=== PATIENT | female | born 1990 | race Caucasian/White ===

== ENCOUNTER 2018-04-30 04:38 | Emergency (ER) | payer SELFPAY ==
[2018-04-30 05:24] LABS: Absolute Lymphocytes (CBC) 1.7 K/uL (0.7-4.9); Absolute Monocytes 0.5 K/uL (0.1-1.3); Absolute Neutrophil 4.7 K/uL (1.8-8.0); Basophils % 0.4 % (0-1.3); Eosinophils % 1.1 % (0-4.4); Hematocrit 38.7 % (36.0-45.0); Lymphocytes % 24.8 % (15.3-44.8); Monocytes % 7.1 % (3.3-12.3)
[2018-04-30] MEDS ORDERED: MAGNE/ALUM HYDROXD 30 ML UCUP ONE (05:29)
[2018-04-30] MEDS ORDERED: ONDANSETRON 4 MG/2 ML VIAL ONE (05:29)
[2018-04-30] MEDS ORDERED: NA CHLORIDE 0.9% 1,000 ML ONE (05:29)
[2018-04-30] MEDS ORDERED: LIDOCAINE VISCOUS 2% SOLN 15 ML UDC ONE (05:29)
[2018-04-30 05:39] LABS: Urine Blood NEGATIVE (NEG); Urine Glucose NEGATIVE (NEG); Urine Protein NEGATIVE (NEG); Urine pH 5.5 (5.0-7.0)
[2018-04-30 05:39] LABS: ALT/SGPT 27 U/L (12-78); AST/SGOT 19 U/L (15-37); Alkaline Phosphatase 79 U/L (45-117); BUN Blood Urea Nitrogen 12 mg/dL (7-18); Bicarbonate 26 mmol/L (21-32); Bilirubin Direct 0.1 mg/dL (0-0.2); Bilirubin Total 0.4 mg/dL (0.2-1.0); Glucose Level 93 mg/dL (74-106); Lipase 87 U/L (73-393); Potassium 3.5 mmol/L (3.5-5.1); Sodium Level 139 mmol/L (136-145)
--- NOTE | 2018-04-30 08:11 | RAD REPORT ---
EXAM DESCRIPTION: US - Abdomen Exam Limited - 04/30/2018 7:07 am CLINICAL HISTORY: EPIGASTRIC PAIN COMPARISON: No comparisons FINDINGS: The gallbladder demonstrates no gallstones. No pericholecystic fluid or gallbladder wall t hickening. The common bile duct is normal measuring 4 mm. The liver demonstrates no findings of intrahepatic biliary dilatation. IMPRESSION: Unremarkable examination.
--- NOTE | 2018-04-30 08:11 | RAD REPORT ---
EXAM DESCRIPTION: CTAbdomen Pelvis W Contrast - 04/30/2018 7:26 am CLINICAL HISTORY: Abdominal pain. ABD PAIN COMPARISON: No comparisons TECHNIQUE: Biphasic CT imaging of the abdomen and pelvis was performed with 100 ml non-ionic IV cont rast. All CT scans are performed using dose optimization technique as appropriate and may include automated exposure control or mA/KV adjustment according to patient size. FINDINGS: The lung bases are clear. The liver, spleen, pancreas, adrenal glands and kidneys are within normal limits. No bowel obstruction, free air, free fluid or abscess. Small fat containing umbilical The appendix is normal. No evidence of significant lymphadenopathy. No suspicious bony findings. IMPRESSION: No acute intra-abdominal or pelvic finding.
--- NOTE | 2018-04-30 08:27 | ER ---
Nurse's Notes [facility] Name: Patsy Alcocer Age: 27 yrs Sex: Female : 1990 Arrival Date: 04/30/2018 Time: 04:41 Bed 5 Private MD: Diagnosis: Gastritis, unspecified Presentation: 04/30 04:45 Presenting complaint: Patient states: that she has been having abd pain x 3 days along fc with nausea and vomiting. Last bowel movement yesterday and it was "hard". Also concerned because her abd is hard to touch. Transition of care: patient was not received from another setting of care. Onset of symptoms was April 27, 2018. Risk Assessment: Do you want to hurt yourself or someone else? Patient reports no desire to harm self or others. Initial Sepsis Screen: Does the patient meet any 2 criteria? No. Patient's initial sepsis screen is negative. Does the patient have a suspected source of infection? No. Patient's initial sepsis screen is negative. Care prior to arrival: None. 04:45 Method Of Arrival: Ambulatory fc 04:45 Acuity: BIN 3 fc SUPERVISOR MAPPING: 04:45 [facility] 04/20/2018 fc Historical: - Allergies: 04:51 No Known Allergies; fc - Home Meds: 04:51 None [Active]; fc - PMHx: 04:51 None; fc - PSHx: 04:51 None; fc - Immunization history:: Last tetanus immunization: unknown, Flu vaccine is not up to date. - Social history:: Smoking status: Patient/guardian denies using tobacco, Patient/guardian denies using alcohol, street drugs. - Ebola Screening: : Patient negative for fever greater than or equal to 101.5 degrees Fahrenheit, and additional compatible Ebola Virus Disease symptoms Patient denies exposure to infectious person Patient denies travel to an Ebola-affected area in the 21 days before illness onset. - Family history:: not pertinent. - Hospitalizations: : No recent hospitalization is reported. Screenin:45 Abuse screen: Denies threats or abuse. Nutritional screening: No deficits noted. fc Tuberculosis screening: No symptoms or risk factors identified. Fall Risk None identified. Assessment: 04:50 General: Appears in no apparent distress. uncomfortable, Behavior is calm, cooperative, jd3 appropriate for age. Pain: Complains of pain in abdomen Quality of pain is described as aching, tender. Neuro: Level of Consciousness is awake, alert, obeys commands, Oriented to person, place, time, situation. Cardiovascular: Capillary refill < 3 seconds Patient's skin is warm and dry. Respiratory: Airway is patent Respiratory effort is even, unlabored, Respiratory pattern is regular, symmetrical. GI: Abdomen is round non-distended, Bowel sounds present X 4 quads. Abd is soft in right upper quadrant, right lower quadrant and left lower quadrant Abdomen is tender to palpation in left upper quadrant Reports constipation. : No signs and/or symptoms were reported regarding the genitourinary system. EENT: No signs and/or symptoms were reported regarding the EENT system. Derm: Skin is intact, Skin is dry, Skin is normal, Skin temperature is warm. Musculoskeletal: Circulation, motion, and sensation intact. Range of motion: intact in all extremities. 06:19 Reassessment: Patient appears in no apparent distress at this time. Patient and/or tl2 family updated on plan of care and expected duration. Pain level reassessed. Patient is alert, oriented x 3, equal unlabored respirations, skin warm/dry/pink. Patient states feeling better. 07:15 Reassessment: Patient appears in no apparent distress at this time. Patient and/or hb family updated on plan of care and expected duration. Pain level reassessed. Patient is alert, oriented x 3, equal unlabored respirations, skin warm/dry/pink. 08:15 Reassessment: Patient appears in no apparent distress at this time. No changes from hb previously documented assessment. Patient and/or family updated on plan of care and expected duration. Pain level reassessed. Patient is alert, oriented x 3, equal unlabored respirations, skin warm/dry/pink. Vital Signs: 04:45 BP 125 / 80; Pulse 89; Resp 18; Temp 98.3(O); Pulse Ox 100% on R/A; Weight 73.94 kg fc (R); Height 5 ft. 2 in. (157.48 cm) (R); Pain 7/10; 06:19 BP 108 / 80; Pulse 81; Resp 18; Pulse Ox 100% on R/A; tl2 07:15 BP 112 / 78; Pulse 78; Resp 16; Pulse Ox 99% on R/A; hb 08:01 BP 116 / 76; Pulse 76; Resp 16; Pulse Ox 99% on R/A; hb 04:45 Body Mass Index 29.81 (73.94 kg, 157.48 cm) ED Course: 04:41 Patient arrived in ED. al2 04:43 Mason Stallworth, RN is Primary Nurse. jd3 04:45 Arm band placed on Patient placed in an exam room, on a stretcher. 04:45 Patient has correct armband on for positive identification. Placed in gown. Bed in low fc position. Call light in reach. Pulse ox on. NIBP on. 04:50 Triage completed. 05:00 Freddie Herrera MD is Attending Physician. rn 05:15 Inserted saline lock: 22 gauge in right antecubital area, using aseptic technique. tl2 Blood collected. 05:30 Oral contrast given. eh 05:40 Oral contrast reported to be complete. eh 07:07 US Abdomen Limited In Process Unspecified. EDMS 07:26 CT Abd/Pelvis - W/Contrast In Process Unspecified. EDMS 08:54 No provider procedures requiring assistance completed. IV discontinued, intact, hb bleeding controlled, No redness/swelling at site. Pressure dressing applied. Administered Medications: 05:29 Drug: Zofran 4 mg Route: IVP; Site: right antecubital; tl2 07:00 Follow up: Response: No adverse reaction; Nausea is decreased tl2 05:29 Drug: GI Cocktail without - (Maalox Suspension 30 ml, Lidocaine Liquid 2 % 15 tl2 ml) Route: PO; 07:01 Follow up: Response: No adverse reaction; Pain is decreased tl2 05:30 Drug: NS 0.9% 1000 ml Route: IV; Rate: 1000 ml; Site: right antecubital; tl2 Outcome: 08:26 Discharge ordered by . ma2 08:54 Discharged to home ambulatory. hb 08:54 Condition: stable 08:54 Discharge instructions given to patient, Instructed on discharge instructions, follow up and referral plans. no driving heavy equipment, Demonstrated understanding of instructions, follow-up care, medications, Prescriptions given X 3. 08:58 Patient left the ED. hb Signatures: Dispatcher [employer] EDWY Olayinka Powers Jacinta Esposito RN RN Freddie Herrera MD MD rn Baxter, Heather, RN RN hb Knox, Taylor, RN RN tl2 Mason Stallworth RN RN jd3 Chelsea, Reina [email or web address] Kristina Hernandez MD MD ma2
--- NOTE | 2018-04-30 08:28 | EDPHYS ---
Physician Documentation [facility] Name: Patsy Alcocer Age: 27 yrs Sex: Female : 1990 Arrival Date: 04/30/2018 Time: 04:41 Bed 5 Private MD: ED Physician HPI: 04/30 05:50 This 27 yrs old Female presents to ER via Ambulatory with complaints of rn Abdominal Pain, Vomiting. 05:52 The patient presents with abdominal pain in the epigastric area. rn 05:53 Onset: The symptoms/episode began/occurred 3 day(s) ago. The symptoms do not radiate. rn Associated signs and symptoms: Pertinent positives: nausea and vomiting, constipation, Pertinent negatives: shortness of breath, vaginal discharge. The symptoms are described as achy. Modifying factors: The symptoms are alleviated by nothing, the symptoms are aggravated by touching the area. Severity of pain: At its worst the pain was moderate in the emergency department the pain has improved. The patient has not experienced similar symptoms in the past. The patient has not recently seen a physician. 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 - Social history:: Smoking status: Patient/guardian denies using tobacco, Patient/guardian denies using alcohol, street drugs. - Ebola Screening: : Patient negative for fever greater than or equal to 101.5 degrees Fahrenheit, and additional compatible Ebola Virus Disease symptoms Patient denies exposure to infectious person Patient denies travel to an Ebola-affected area in the 21 days before illness onset. - Family history:: not pertinent. - Hospitalizations: : No recent hospitalization is reported. ROS: 05:53 Constitutional: Negative for fever, chills, and weight loss, Eyes: Negative for injury, rn pain, redness, and discharge, Neck: Negative for injury, pain, and swelling, Cardiovascular: Negative for chest pain, palpitations, and edema, Respiratory: Negative for shortness of breath, cough, wheezing, and pleuritic chest pain, Abdomen/GI: Negative for diarrhea MS/Extremity: Negative for injury and deformity, Skin: Negative for injury, rash, and discoloration, Neuro: Negative for headache, weakness, numbness, tingling, and seizure. Exam: 05:38 ECG was reviewed by the Attending Physician. rn 05:53 Constitutional: This is a well developed, well nourished patient who is awake, alert, rn and in no acute distress. Head/Face: Normocephalic, atraumatic. Eyes: Pupils equal round and reactive to light ENT: mmm Abdomen/GI: soft, neg torre, +mild epigastric tenderness Skin: Warm, dry and no evidence of cellulitis. MS/ Extremity: Pulses equal, no cyanosis. Neuro: Awake and alert, GCS 15, oriented to person, place, time, and situation. Cranial nerves II-XII grossly intact. Motor strength 5/5 in all extremities. Sensory grossly intact. Vital Signs: 04:45 BP 125 / 80; Pulse 89; Resp 18; Temp 98.3(O); Pulse Ox 100% on R/A; Weight 73.94 kg fc (R); Height 5 ft. 2 in. (157.48 cm) (R); Pain 7/10; 06:19 BP 108 / 80; Pulse 81; Resp 18; Pulse Ox 100% on R/A; tl2 07:15 BP 112 / 78; Pulse 78; Resp 16; Pulse Ox 99% on R/A; hb 08:01 BP 116 / 76; Pulse 76; Resp 16; Pulse Ox 99% on R/A; hb 04:45 Body Mass Index 29.81 (73.94 kg, 157.48 cm) MDM: 05:00 Patient medically screened. rn 08:26 Differential diagnosis: gastritis, gastroesophageal reflux disease, pancreatitis. Data ma2 reviewed: vital signs, nurses notes. Counseling: I had a detailed discussion with the patient and/or guardian regarding: the historical points, exam findings, and any diagnostic results supporting the discharge/admit diagnosis, the presence of at least one elevated blood pressure reading (>120/80) during this emergency department visit. Response to treatment: the patient's symptoms have resolved after treatment. 04/30 04:59 Order name: Basic Metabolic Panel; Complete Time: 05:50 tl2 04/30 04:59 Order name: CBC with Diff; Complete Time: 05:50 tl2 04/30 04:59 Order name: Creatinine for Radiology; Complete Time: 05:50 tl2 04/30 04:59 Order name: Hepatic Function; Complete Time: 05:50 tl2 04/30 04:59 Order name: Lipase; Complete Time: 05:50 tl2 04/30 05:10 Order name: Urine Dipstick--Ancillary (enter results) gm 04/30 05:10 Order name: Urine --Ancillary (enter results); Complete Time: 05:50 gm 04/30 05:11 Order name: Urine Dipstick-Ancillary; Complete Time: 05:50 EDMS 04/30 05:12 Order name: EKG; Complete Time: 05:12 rn 04/30 05:14 Order name: CT Abd/Pelvis - W/Contrast; Complete Time: 08:19 rn 04/30 05:14 Order name: US Abdomen Limited; Complete Time: 08:19 rn 04/30 04:59 Order name: IV Saline Lock; Complete Time: 05:17 tl2 04/30 04:59 Order name: Labs collected and sent; Complete Time: 05:17 tl2 04/30 04:59 Order name: Urine Dipstick-Ancillary (obtain specimen); Complete Time: 05:09 tl2 04/30 04:59 Order name: Urine Test (obtain specimen); Complete Time: 05:09 tl2 04/30 05:12 Order name: EKG - Nurse/Tech; Complete Time: 05:30 rn EC:38 Rate is 69 beats/min. Rhythm is regular. QRS [place] is Normal. MD interval is normal. QRS rn interval is normal. QT interval is normal. No Q waves. T waves are Normal. No ST changes noted. Clinical impression: Normal ECG. Interpreted by me. Administered Medications: 05:29 Drug: Zofran 4 mg Route: IVP; Site: right antecubital; tl2 07:00 Follow up: Response: No adverse reaction; Nausea is decreased tl2 05:29 Drug: GI Cocktail without - (Maalox Suspension 30 ml, Lidocaine Liquid 2 % 15 tl2 ml) Route: PO; 07:01 Follow up: Response: No adverse reaction; Pain is decreased tl2 05:30 Drug: NS 0.9% 1000 ml Route: IV; Rate: 1000 ml; Site: right antecubital; tl2 Disposition: 04/30/18 08:26 Discharged to Home. Impression: Gastritis, unspecified. - Condition is Stable. - Discharge Instructions: Gastritis, Adult. - Prescriptions for Pepcid 20 mg Oral Tablet - take 1 tablet by ORAL route every 12 hours for 10 days; 20 tablet. Tylenol- Codeine #3 300-30 mg Oral Tablet - take 2 tablet by ORAL route every 6 hours As needed; 30 tablet. Zofran 4 mg Oral Tablet - take 1 tablet by ORAL route every 12 hours As needed; 20 tablet. - Medication Reconciliation Form, Thank You Letter, Antibiotic Education, Prescription Opioid Use form. - Follow up: Private Physician; When: Tomorrow; Reason: Continuance of care. Signatures: Dispatcher [employer] EDJacinta Sainz RN RN Freddie Herrera MD MD rn Baxter, Heather, RN RN hb Knox, Taylor, RN RN tl2 Kristina Hernandez MD MD ma2 Corrections: (The following items were deleted from the chart) 08:58 08:26 04/30/2018 08:26 Discharged to Home. Impression: Gastritis, unspecified. hb Condition is Stable. Forms are Medication Reconciliation Form, Thank You Letter, Antibiotic Education, Prescription Opioid Use. Follow up: Private Physician; When: Tomorrow; Reason: Continuance of care. ma2
[2018-04-30 09:03] VITALS: TEMP 98.3
[2018-04-30 09:06] VITALS: O2SAT 99
[2018-04-30 09:08] VITALS: BP 116/76
--- NOTE | 2018-04-30 12:29 | EKG ---
Test Date: 2018-04-30 Test Time: 05:25:58 Aircraft Delivery Checker: LEELEE MEASUREMENT RESULTS: Intervals: Rate: 69 MA: 166 QRSD: 76 QT: 384 QTc: 411 [place]: P: 45 MA: 166 QRS: 11 T: 17 INTERPRETIVE STATEMENTS: Normal sinus rhythm Normal ECG No previous ECG available for comparison Electronically Signed On 04-30-18 12:28:00 LICENSED [employer] WORK[employer] by Jonas Maciel
== END 2018-04-30 08:58 | disposition home or self-care (01) ==
LOC: ER 04:38
DX: K29.70 Gastritis, unspecified, without bleeding (principal)
CPT/HCPCS: 36415; 74177; 76705; 80048; 80076; 81003; 81025; 83690; 85025; 93005; J2405; J7030; Q9967

== ENCOUNTER 2024-02-24 20:18 | Emergency (ER) | payer OTHER, SELFPAY ==
--- OUTSIDE RECORDS SUMMARY | 2024-02-24 20:21 | XMS REPORT | Continuity of Care Document ---
Author Name Unknown Address [address] [facility] [address] [place] [address] [facility] thconnect Address [address] [facility] [place] [address] Care Team Providers Care Network Operations Technician Name Role Phone PCP, PATIENT DOES NOT HAVE A Primary Care Physic yojana Unavailable Abdelrahman Norman Attending Clinician Unavailable LILO SOLIS Attending Clinician Lilo Vizcaino CNM Attending Clinician [phone] JOHAN CXO Attending Clinician Unavailable Johan Christensen Attending Clinician [phone] Bernardo Mathews DO Attending Clinician [phone] Doctor Unassigned, [place] Attending Clinician MARIA A Watts Attending Clinician Unavailable KNOW, DOES_NOT Admitting Clinician Unavailable Abdelrahman Norman Admitting Clinician Unavailable Payers Payer Name Policy Type Policy Number Effective Date Expirati on Date Source [place] [id number] 2020 00:00:00 [facility] [id number] 2020 00:00:00 Problems Condition Name Condition Details Condition Category Status Onset Date Resolution Date Last Treatment Date Treating Clinician Comments Source Rubella non-immune status, antepartum Rubella non-immune status, antepartum Disease Active 2023-04 00:00: 00 [facility] Rh negative state in antepartum period Rh negative state in antepartum period Disease Active 2023-04 00:00: 00 [facility] Obesity affecting Obesity affecting Disease Active 2023-04 00:00: 00 [facility] related nausea, antepartum related nausea, antepartum Disease Active 2023-04 00:00: 00 [facility] Flu vaccine refused Flu vaccine refused Disease Active 2023-04 00:00: 00 [facility] History of miscarriag e History of miscarriag e Disease Active 2023-04 00:00: 00 [facility] History of with abortive outcome History of with abortive outcome Disease Resolve d 2023-04 00:00: 00 2024-02-04 00:00:00 2024-02-04 09:50:12 [facility] Surveillan ce of previously prescribed contracept glen pill Surveillan ce of previously prescribed contracept glen pill Disease Resolve d 413 00:00: 00 2024-02-04 00:00:00 2024-02-04 09:50:07 [facility] Ingrown hair Ingrown hair Disease Resolve d 4-13 00:00: 00 2024-02-04 00:00:00 2024-02-04 09:50:09 [facility] Screen for STD (sexually transmitte d disease) Screen for STD (sexually transmitte d disease) Disease Resolve d 413 00:00: 00 2024-02-04 00:00:00 2024-02-04 09:50:09 [facility] Allergies, Adverse Reactions, Alerts Allergy Name Allergy Type Status Severity Reaction(s) Onset Date Inactive Date Treating Clinician Comments Source No Known Allergie s DA Active U 5-27 00:00: 00 [facility] No Known Allergie s DA Active U 0 5 00:00: 00 [facility] No Known Allergie s DA Active U 0 08-18 00:00: 00 [facility] No Known Allergie s DA Active U 0 08-18 00:00: 00 [facility] No Known Allergie s DA Active U 0 08-11 00:00: 00 [facility] No Known Allergie s DA Active U 0 08-11 00:00: 00 [facility] No Known Allergie s DA Active U 0 07-08 00:00: 00 [facility] No Known Allergie s DA Active U 0 07-08 00:00: 00 [facility] NO KNOWN ALLERGIE S Drug Class Active [facility] Social History Social Habit Start Date Stop Date Quantity Comments Source ASSERTION 2023-12-11 00:00:00 [facility] Alcoholic beverage intake 2024-02-04 00:00:00 2024-02-04 00:00:00 Current non-drinker of alcohol (finding) [facility] History of Social function 2024-02-04 00:00:00 2024-02-04 00:00:00 [facility] Exposure to SARS-CoV-2 (event) 2021-10-08 00:00:00 2021-10-18 12:09:00 Not sure [facility] Alcohol intake 2021-10-18 00:00:00 2021-10-18 00:00:00 Current non-drinker of alcohol (finding) [facility] Tobacco use and exposure 2014-07-12 00:00:00 2014-07-12 00:00:00 Smokeless tobacco non-user [facility] Sex assigned at 1990 00:00:00 1990 00:00:00 [facility] Smoking Status Start Date Stop Date Source Never smoked tobacco [facility] Medications Ordered Medication Name Filled Medication Name Start Date Stop Date Current Medication? Ordering Clinician Indication Dosage Frequency Signature (SIG) Comments Components Source meclizine 25 mg tablet 2023-04 0 00:00: 00 02-03 00:00 :00 No 25mg Take 1 tablet by mouth. [facility] ondansetron (ZOFRAN-ODT ) disintegrat ing tablet 4 mg 10-18 20:30: 00 10-18 20:10 :00 No 4mg 4 mg, Oral, ONCE, 1 dose, On Sat10/18/21 at 1530, Routine [facility] cephALEXin (KEFLEX) capsule 500 mg 10-18 20:30: 00 10-18 20:11 :00 No 500mg 500 mg, Oral, ONCE NOW, 1 dose, On Sat10/18/21 at 1530, CAMACHO
Re ason for Anti-Infec tive: Documented Infection< br>Documen farhad Infection Site: Urine
D uration of Therapy: 7 days [facility] ondansetron 4 mg disintegrat ing tablet 10-18 00:00: 02-03 00:00 :00 No [id number] 4mg Take 1 tablet by mouth every 8 (eight) hours as needed for Nausea and Vomiting (N/V). [facility] cephALEXin (KEFLEX) 500 mg capsule 10-18 00:00: 00 10-26 04:59 :00 No [id number] 500mg Take 1 capsule by mouth in the morning and 1 capsule in the evening. Do all this for 7 days. [facility] NaCl 0.9% (NS) bolus infusion 1,000 mL 2020-04 008 18:30: 00 01-06 18:12 :00 No 1000mL at 999 mL/hr, 1,000 mL, IV Piggyback, ONCE, 1 dose, On Sat01/06/21 at 1330, STAT [facility] cephALEXin (KEFLEX) 500 mg capsule 2020-04 008 00:00: 00 01-14 04:59 :00 No [id number] 500mg Take 1 capsule by mouth 3 (three) times daily for 7 days. [facility] No known medications 09-02 13:18: 21 No [facility] Immunizations Ordered Immunization Name Filled Immunization Name Date Status Comments Source TDAP (ADACEL) VACCINE 2009-10-30 00:00:00 Completed [facility] TDAP (ADACEL) VACCINE 2009-10-30 00:00:00 Completed TDAP (ADACEL) VACCINE 2009-10-30 00:00:00 Completed [facility] TDAP (ADACEL) VACCINE 2009-10-30 00:00:00 Completed [facility] Vital Signs Vital Name Observation Time Observation Value Comments S our Systolic blood pressure 2024-02-04 15:10:00 123 mm[Hg] [facility] Diastolic blood pressure 2024-02-04 15:10:00 77 mm[Hg] [facility] Heart rate 2024-02-04 15:10:00 104 /min [facility] Body temperature 2024-02-04 15:10:00 36.22 Angela [facility] Respiratory rate 2024-02-04 15:10:00 18 /min [facility] Body height 2024-02-04 15:10:[address] [facility] Body weight 2024-02-04 15:10:[address] [facility] BMI 2024-02-04 15:10:00 30.46 kg/m2 [facility] Systolic blood pressure 2021-10-18 17:11:00 124 mm[Hg] [facility] Diastolic blood pressure 2021-10-18 17:11:00 82 mm[Hg] [facility] Heart rate 2021-10-18 17:11:00 105 /min [facility] Body temperature 2021-10-18 17:11:00 37.67 Angela [facility] Respiratory rate 2021-10-18 17:11:00 22 /min [facility] Body weight 2021-10-18 17:11:[address] [facility] BMI 2021-10-18 17:11:00 29.18 kg/m2 [facility] Oxygen saturation in Arterial blood by Pulse oximetry 2021-10-18 17:11:00 98 /min [facility] Systolic blood pressure 2021-01-06 17:04:00 132 mm[Hg] [facility] Diastolic blood pressure 2021-01-06 17:04:00 67 mm[Hg] [facility] Heart rate 2021-01-06 17:04:00 98 /min [facility] Body temperature 2021-01-06 17:04:00 36.78 Angela [facility] Respiratory rate 2021-01-06 17:04:00 18 /min [facility] Body weight 2021-01-06 17:04:[address] [facility] BMI 2021-01-06 17:04:00 25.75 kg/m2 [facility] Oxygen saturation in Arterial blood by Pulse oximetry 2021-01-06 17:04:00 99 /min [facility] Procedures Procedure Date / Time Performed Performing Clinicia n Source POCT URINALYSIS W/O SPECIFIC GRAVITY 2024-02-04 15:11:00 Lilo Solis [facility] POCT TEST 2024-02-04 15:10:00 Danielle Solis [facility] EXTERNAL PAP SMEAR 2022-12-06 05:00:00 Doctor Un assigned, [place] [facility] EXTERNAL PAP SMEAR WITH HPV CO-TEST 2021-11-07 05:00:00 Doctor Unassigned, [place] [facility] POCT TEST 2021-10-18 18:04:00 Arlette Cox [facility] URINALYSIS 2021-10-18 18:03:[address] [facility] RAPID INFLUENZA A/B 2021-10-18 18:03:00 Arlette Cox [facility] COVID-19 (ID NOW RAPID TESTING) 2021-10-18 17:14:00 Tana Demarco [facility] CONSENT/REFUSAL FOR DIAGNOSIS AND TREATMENT 2021-10-18 17:02:33 Doctor Unassigned, [place] [facility] POCT TEST 2021-01-06 17:23:00 Raymundo Mathews [facility] COMP. METABOLIC PANEL ([id number]) 2021-01-06 17:21:00 Bernardo Mathews [facility] CBC WITH DIFF 2021-01-06 17:21:00 Bernardo Mathews [facility] URINALYSIS 2021-01-06 17:21[facility]AG[facility]IS AND TREATMENT 2021-01-06 16:55:53 Doctor Unassigned, [place] [facility] [id number] 2020-09-07 00:00:00 [facility] [id number] 2020-09-07 00:00:00 [facility] [id number] 2020-09-07 00:00:00 [facility] [id number] 2020-09-07 00:00:00 [facility] Encounters Start Date/Time End Date/Time Encounter Type Admission Type Attending [facility] Care Facility Care Department Encounter ID Source 2021-01-31 05:16:47 Emergency [facility] [id number] [facility] 2020-09-29 00:05:00 Inpatient Abdelrahman Santoyo [facility] [id number] [facility] 2020-07-07 13:02:00 Inpatient OLIVERIO Dianeconcepcion Abdelrahman [facility] LABO [id number] [facility] 2024-02-06 00:00:00 2024-02-06 06:34:15 Abstract Lilo Solis [facility] INVESTMENT TRADER [facility] MATERNAL & CHILD [facility] [id number] [facility] 2024-02-04 08:45:00 2024-02-04 10:18:43 Initial Visit Lilo Solis [facility] INVESTMENT TRADER [facility] MATERNAL & CHILD [facility] [id number] [facility] 2024-02-04 08:15:00 2024-02-04 09:23:19 Outpatient R LILO SOLIS [facility] [id number] [facility] 2021-10-18 12:14:00 2021-10-18 15:15:00 Emergency X JOHAN COX [facility] ERT [id number] [facility] 2021-10-18 12:14:00 2021-10-18 15:15:00 Emergency Gayle Coxanne [facility] [id number] [id number] [id number] [facility] 2021-01-06 12:10:00 2021-01-06 13:23:00 Emergency Bernardo Mathews [facility] [id number] [facility] 2021-01-06 00:00:00 2021-01-06 00:00:00 Orders Only Doctor Unassigned, [place] [facility] [id number] [id number] [facility] 2020-09-01 10:05:00 2020-09-28 00:00:00 Inpatient Abdelrahman Santoyo [facility] [id number] [facility] 2020-09-06 21:33:00 2020-09-09 14:26:00 Inpatient Abdelrahman Santoyo [facility] [id number] [facility] 2020-08-11 11:22:00 2020-08-29 00:00:00 Inpatient Abdelrahman Santoyo [facility] [id number] [facility] 2020-04-21 11:45:00 2020-04-21 11:45:00 Outpatient R [facility] [id number] [facility] 2020-04-04 18:20:00 2020-04-04 18:20:00 Outpatient R MARIA A YOUNG [facility] [id number] [facility] Results Test Description Test Time Test Comments Results Result Co mments Source [facility] w/o Specific [id number] 15:11:00* Test Item Value Reference Range Interpretation Comme nts POCT PH U (test code = 3254) 6 mg/dl 5-8 POCT U LEUK EST (test code = 3263) Neg Negative - Negative POCT U NIT (test code = 3262) Neg Negative - Negati ve POCT U PROT (test code = 3259) Trace Negative - Negat glen POCT U GLU (test code = 3256) Nml Negative - Negati ve POCT U KETONE (test code = 3258) 1+ Negative - Neg ative POCT U BLD (test code = 3257) Neg Negative - Negati ve [facility] [id number] 00:00:00* Test Item Value Reference Range Interpretation Comme [facility] External Pap Smear (test code = 67939-2) [facility] Medical Diagnost ics Lab [facility] With HPV [id number] 00:00:00* Test Item Value Reference Range Interpretation Comme [facility] External Pap Smear (test code = 46604-2) [facility] Medical Di agnostics Lab External HPV (test code = 35592-9) [facility] - [facility] [id number] 18:04:00* Test Item Value Reference Range Interpretation Comme nts POCT PREG (test code = 1605) NEGATIVE On board controls acceptable with C Line (test code = 3574) present POCT PREG LOT # (test code = 3575) [id number] POCT PREG TEST DATE ( test code = 3576) 12/29/2022 Lab Interpretation (test cod e = 69765-4) Normal [facility] Metabolic [id number] 17:41:48* Test Item Value Reference Range Interpretation Comme nts NA (test code = 1081735333) 141 mmol/L 135-145 K (test code = 1239475223) 4.2 mmol/L 3.5-5.0 CL (test code = 3212895762) 106 mmol/L 98-108 CO2 TOTAL (test code = 6346271637) 27 mmol/L 23-31 AGAP (test code = 9227268294) 2-16 BUN (test code = 3447260036) 10 mg/dL 7-23 GLUCOSE (test code = 6724050761) 210 mg/dL 70-110 H CREATININE (test code = 0318002227) 0.63 mg/dL 0.50-1.04 TOTAL BILI (test code = 7794412824) 0.4 mg/dL 0.1-1.1 CALCIUM (test code = 3195045772) 9.6 mg/dL 8.6-10.6 T PROTEIN (test code = 8296815538) 7.6 g/dL 6.3-8.2 ALBUMIN (test code = 6666794735) 4.5 g/dL 3.5-5.0 ALK PHOS (test code = 6370170862) 89 U/L 34-122 ALTv (test code = 1742-6) 29 U/L 5-35 AST(SGOT) (test code = 5436712949) 26 U/L 13-40 eGFR (test code = 0962532984) mL/min/1.73m2 SHANNON (test code = SHANNON) Association of Glomerular Filtration Rate (GFR) and Staging of Kidney Disease* + --+ --+ ------+| GFR (mL/min/1.73 m2) ?| With Kidney Damage ?| ?Without Kidney Damage+ --------+ --------+ +| ?>90 ?| ?Stage one ?| ? Normal ?+ ---+ ---+ -------+| ?60-89 ?| ?Stage two ?| ? Decreased GFR ? + --+ --+ ------+| ?30-59 ?| ?Stage three ?| ? Stage three ? + --+ --+ ------+| ?15-29 ?| ?Stage four ? | ? Stage four ?+ ---+ ---+ -------+| ?<15 (or dialysis) ? ?| ?Stage five ? | ? Stage five ?+ ---+ ---+ -------+ *Each stage assumes the associated GFR level has been in effect for at least three months. ?Stages 1 to 5, with or without kidney disease, indicate chronic kidney disease. Notes: Determination of stages one and two (with eGFR >59mL/min/1.73 m2) requires estimation of kidney damage for at least three months as defined by structural or functional abnormalities of the kidney, manifested by either:Pathological abnormalities or Markers of kidney damage (including abnormalities in the composition of the blood or urine or abnormalities in imaging tests). Lab Interpretation (test code = 98332-2) Abnormal [facility] with [id number] 17:28:05* Test Item Value Reference Range Interpretation Comme nts WBC (test code = 6690-2) See_Comment [Automated [employer]] The system which generated this result transmitted reference range: 4.30 - 11.10 10*3/?L. The reference range was not used to interpret this result as normal/abnormal. RBC (test code = 789-8) See_Comment [Automated [employer]] The system which generated this result transmitted reference range: 3.93 - 5.25 10*6/?L. The reference range was not used to interpret this result as normal/abnormal. HGB (test code = 718-7) 13.1 g/dL 11.6-15.0 HCT (test code = 4544-3) 40.3 % 35.7-45.2 MCV (test code = 787-2) 86.5 fL 80.6-95.5 MCH (test code = 785-6) 28.1 pg 25.9-32.8 MCHC (test code = 786-4) 32.5 g/dL 31.6-35.1 RDW-SD (test code = 76314-7) 42.1 fL 39.0-49.9 RDW-CV (test code = 788-0) 13.4 % 12.0-15.5 PLT (test code = 777-3) See_Comment [[employer]] The system which generated this result transmitted reference range: 166 - 358 10*3/?L. The reference range was not used to interpret this result as normal/abnormal. MPV (test code = 68162-9) 10.1 fL 9.5-12.9 NRBC/100 WBC (test code = 4408154169) See_Comment [Automated me ssage] The system which generated this result transmitted reference range: 0.0 - 10.0 /100 WBCs. The reference range was not used to interpret this result as normal/abnormal. NRBC x10^3 (test code = 9972422217) <0.01 See_Comment [Automated me ssage] The system which generated this result transmitted reference range: 10*3/?L. The reference range was not used to interpret this result as normal/abnormal. GRAN MAT (NEUT) % (test code = 770-8) 59.9 % IMM GRAN % (test code = 2292069699) 0.40 % LYMPH % (test code = 736-9) 28.3 % MONO % (test code = 5905-5) 8.4 % EOS % (test code = 713-8) 2.7 % BASO % (test code = 706-2) 0.3 % GRAN MAT x10^3(ANC) (test code = 3235001361) 4.27 10*3/uL 1.88-7.09 IMM GRAN x10^3 (test code = 4833682683) 0.03 10*3/uL 0.00-0.06 LYMPH x10^3 (test code = 731-0) 2.02 10*3/uL 1.32-3.29 MONO x10^3 (test code = 742-7) 0.60 10*3/uL 0.33-0.92 EOS x10^3 (test code = 711-2) 0.19 10*3/uL 0.03-0.39 BASO x10^3 (test code = 704-7) <0.03 0.01-0.07 [facility] [id number] 17:23:00* Test Item Value Reference Range Interpretation Comme nts POCT PREG (test code = 1605) negative On board controls acceptable with C Line (test code = 3574) present POCT PREG LOT # (test code = 3575) [id number] POCT PREG TEST DATE ( test code = 3576) Lab Interpretation (test cod e = 60028-0) Normal [facility] [id number] 07:53:00* Test Item Value Reference Range Interpretation Comme nts HEMOGLOBIN (test code = HGB) 9.8 g/dL 10.1-13.8 L HEMATOCRIT (test code = HCT) 30.9 % 32.5-41.8 L [id number] 13:56:00* Test Item Value Reference Range Interpretation Comme nts GLUBED (test code = GLUBED) 102 mg/dL 65-110 N [id number] 09:17:00* Test Item Value Reference Range Interpretation Comme nts GLUBED (test code = GLUBED) 106 mg/dL 65-110 N AG HEPATITIS B [id number] 23:35:00* Test Item Value Reference Range Interpretation Comme nts AG HEPATITIS B SURFACE (test code = HBSAG) NONREACTIVE NONREACTIVE IS CONSENT FORM SIGNED FOR HIV TESTING? NAB HEPATITIS C [id number] 23:35:00* Test Item Value Reference Range Interpretation Comme nts AB HEPATITIS C (test code = HCVAB) NONREACTIVE NONREACTIVE SIGNAL TO CUTOFF (test code = CUTOFF) 0.04 <0.80 N IS CONSENT FORM SIGNED FOR HIV TESTING? NAB [id number] 23:35:00* Test Item Value Reference Range Interpretation Comme nts AB TREPONEMA (test code = TREPAB) NONREACTIVE NONREACTIVE IS CONSENT FORM SIGNED FOR HIV TESTING? NAB HIV 1 23:35:00* Test Item Value Reference Range Interpretation Comme nts AB HIV 1 2 (test code = EHA01DD) NONREACTIVE NONREACTIVE Done by [employer] 4th Gen HIV Ag/Ab Combo Screen IS CONSENT FORM SIGNED FOR HIV TESTING? NAG HEPATITIS B [id number] 23:06:00* Test Item Value Reference Range Interpretation Comme nts AG HEPATITIS B SURFACE (test code = HBSAG) NONREACTIVE NONREACTIVE IS CONSENT FORM SIGNED FOR HIV TESTING? NAB HEPATITIS C [id number] 23:06:00* Test Item Value Reference Range Interpretation Comme nts AB HEPATITIS C (test code = HCVAB) NONREACTIVE SIGNAL TO CUTOFF (test code = CUTOFF) <0.80 IS CONSENT FORM SIGNED FOR HIV TESTING? NAB [id number] 23:06:00* Test Item Value Reference Range Interpretation Comme nts AB TREPONEMA (test code = TREPAB) NONREACTIVE NONREACTIVE IS CONSENT FORM SIGNED FOR HIV TESTING? NAB HIV 1 23:06:00* Test Item Value Reference Range Interpretation Comme nts AB HIV 1 2 (test code = ZXG78LX) NONREACTIVE IS CONSENT FORM SIGNED FOR HIV TESTING? [id number] 22:36:00* Test Item Value Reference Range Interpretation Comme nts GLUCOSE (test code = GLU) 113 mg/dL 65-110 H CBC W/AUTO [id number] 22:25:00* Test Item Value Reference Range Interpretation Comme nts WHITE BLOOD CELL (test code = WBC) 9.4 K/mm3 6.5-12.3 N RED BLOOD CELL (test code = RBC) 4.02 M/mm3 3.51-4.69 N HEMOGLOBIN (test code = HGB) 11.0 g/dL 10.1-13.8 N HEMATOCRIT (test code = HCT) 34.7 % 32.5-41.8 N MEAN CELL VOLUME (test code = MCV) 86.3 fL 84.6-96.6 N MEAN CELL HGB (test code = MCH) 27.4 pg 27.3-33.9 N MEAN CELL HGB CONCETRATION ( test code = MCHC) 31.7 gm/dL 32.0-34.2 L RED CELL DISTRIBUTION WIDTH (test code = RDW) 13.9 % 12.2-16.3 N PLATELET COUNT (test code = PLT) 277 K/mm3 134-363 N MEAN PLATELET VOLUME (test c ode = MPV) 11.5 fL 9.2-12.7 N NEUTROPHIL % (test code = NT%) 69.4 % 57.9-77.3 N LYMPHOCYTE % (test code = LY%) 22.1 % 14.5-29.7 N MONOCYTE % (test code = MO%) 7.5 % 3.6-10.2 N EOSINOPHIL % (test code = EO%) 0.5 % 0.0-3.0 N BASOPHIL % (test code = BA%) 0.2 % 0.1-0.9 N NEUTROPHIL # (test code = NT#) 6.5 K/mm3 LYMPHOCYTE # (test code = LY#) 2.1 K/mm3 MONOCYTE # (test code = MO#) 0.7 K/mm3 EOSINOPHIL # (test code = EO#) 0.05 K/mm3 BASOPHIL # (test code = BA#) 0.0 K/mm3 RBC MORPHOLOGY REQUIRED (tyler t code = RBCM) NORMAL NORMAL PLATELET MORPHOLOGY REQUIRED (test code = PLTMR) NORMAL NORMAL COVID 19 Asymptomatic I[facility] [id number] 19:46:00* Test Item Value Reference Range Interpretation Comme nts COVID 19 Asymptomatic IH AG (test code = COVNONPUIAG) NEGATIVE NEGATIVE This test has be en authorized only for the detection ofproteins from SARS-CoV-2, not for any other viruses orpathogens. Negative results should be treated as presumptive andconfirmed with a molecular assay, if necessary for patientmanagement. Negative results do not rule out COVID-19 andshould not be used as the sole basis for treatment orpatient management decisions, including infection controldecisions. Negative results should be considered in thecontext of a patient's recent exposures, history and thepresence of clinical signs and symptoms consistent withCOVID-19. This test has not been FDA cleared or approved; the test hasbeen authorized by FDA under an Emergency Use Authorization(EUA) for use by laboratories certified under the CLIA thatmeet the requirements to perform moderate, high or waivedcomplexity tests. This test is authorized for use at thePoint of Care (POC), i.e., in patient care settingsoperating under a CLIA Certificate of Waiver, Certificate ofCompliance, or Certificate of Accreditation. This test is only authorized for the duration of thedeclaration that circumstances exist justifying theauthorization of emergency use of in vitro diagnostic testsfor detection and/or diagnosis of COVID-19 under [place](b)(1) of the Act, 21 U.S.C. 360bbb-3(b)(1), unless theauthorization is terminated or revoked sooner. Notes Date/Time Note Provider Source 2020-09-09 12:47:00 [facility] ([facility]) OB Disch REPORT#:[id number] REPORT STATUS: Signed DATE:09/09/20 TIME: 1247 PATIENT: JACKLYN CHOI UNIT #: [id number] ROOM/BED: [address] : 91 AGE: 30 SEX: F ATTEND: Abdelrahman Norman MD ADM AUTHOR: Abdelrahman Norman MD * ALL edits or amendments must be made on the electronic/computer document * Subjective Subjective Admission EGA: Weeks: 38 Days: 5 Status/day: post (day 2) Patient reports: Patient reports: Yes: normal lochia, pain management effective, tolerating po well, voiding well, voiding without pain. No: complaints. Objective General VS: Vital Signs Date Temp Pulse Resp B/P B/P Mean Pulse Ox FiO2 09/09 97.8-98.5 84-93 18- 100/64-65 Last Documented: Result Date Time B/P 100/09/09 0832 Temp 98.5 09/09 0832 Pulse 84 09/09 0832 Resp 20 09/09 0832 B/P Mean 98.0 09/070 PATIENT WEIGHT: Weight (lb): 189 Weight (oz): Weight (kg): 85.191068 Physical Exam Uterus: involution appropriate, non-tender Fundus: below the umbilicus, non-tender Results Findings/Data: Laboratory Tests: 09/08 09/07 0728 1352 Chemistry POC Glucose (65 - 110 mg/dL) 102 Hematology Hgb (10.1 - 13.8 g/dL) 9.8 L Hct (32.5 - 41.8 %) 30.9 L Discharge Summary General Assessment: nml progress Hospital course: induction of labor Procedures: spontaneous vaginal deliv Discharge condition: stable Discharge to: Home/Self Care Baby A: Vaginal delivery: spontaneous status: live born Gender: male 1 minute: 8 5 minutes: 8 Plan: routine care Vaginal packing at delivery: No Discharge Instructions Instructions: instr and warnings rev'd Diet: Regular Activity: As Tolerated Additional discharge routines: None Contraception discussed: will discuss at PP visit Discharge meds: Continue taking these medications: PNV/FE FUM/FA ( MULTIVITAMIN) 28 MG IRON-800 MCG TAB 1 TABLET ORAL DAILY. Prescriptions: none at 1248 RPT #:[id number] END OF REPORT [facility] 2020-09-08 08:29:00 [facility] ([facility]) OB Postpart Progr Note REPORT#:[id number] REPORT STATUS: Signed DATE:09/08/20 TIME: 828 PATIENT: JACKLYN CHOI UNIT #: [id number] ROOM/BED: [address] : 91 AGE: 30 SEX: F ATTEND: Abdelrahman Norman MD ADM AUTHOR: Abdelrahman Norman MD * ALL edits or amendments must be made on the electronic/computer document * Subjective Subjective Admission EGA: Weeks: 38 Days: 5 Status/Day: post (day 1) Patient reports: Patient reports: Yes normal lochia, Yes pain management effective, Yes tolerating po well, Yes voiding well, No no complaints Objective Nursing Documentation Review Nursing Data: The data set between the solid lines has been imported from nursing documentation. Any exceptions have been noted below under Provider comments. Feeding preference: Post hemorrhage risk score: Low Risk for Hemorrhage. Provider comments on imported nursing data: [] General VS: Vital Signs: Date Time Temp Pulse Resp B/P B/P Pulse O2 O2 Flow FiO2 Mean Ox Delivery Rate 09/08 0140 98.4 82 18 109/71 09/07 2049 98.0 09/07 2049 98.9 88 18 134/80 06/ 1912 91.0 06 1912 97.9 74 117/73 06/ 1852 94.0 09/07 1852 62 127/76 / 1816 87.0 06/ 1816 77 113/74 09/07 1801 87.0 06/ 1801 56 114/70 06/09 1746 85.0 06/ 1746 88 114/67 06/ 1731 86.0 06/ 1731 87 113/69 06/ 1716 87.0 06/ 1716 93 110/76 06 1701 80.0 06/ 1701 93 114/65 06/09 1646 98.1 18 06 1646 87.0 06/ 1646 93 127/61 06/09 1629 92.0 06/09 1629 88 116/76 06/09 1610 91.0 06/09 1610 71 120/74 06/09 1605 89.0 06/09 1605 82 126/70 06/09 1559 93.0 06/09 1559 81 123/72 06/09 1555 92.0 06/09 1555 82 123/71 06/09 1549 86.0 06/09 1549 87 116/66 06/09 1544 85.0 06/09 1544 88 119/68 06/09 1536 90.0 06/09 1536 83 117/75 06/09 1517 98.2 06/ 1230 98.1 PATIENT WEIGHT: Weight (lb): 189 Weight (oz): Weight (kg): 85.486883 Physical Exam Uterus: involution appropriate, non-tender Fundus: below the umbilicus, non-tender Lochia: normal Result Findings/Data: Laboratory Tests: 09/08 09/07 09/07 0728 1352 0914 Chemistry POC Glucose (65 - 110 mg/dL) 102 106 Hematology Hgb (10.1 - 13.8 g/dL) 9.8 L Hct (32.5 - 41.8 %) 30.9 L Diagnosis, Assessment Plan Diagnosis, Assessment Plan Assessment: nml progress Plan: routine care Plan discussed with: patient, spouse/partner at 0830 RPT #:[id number] END OF REPORT [facility] 2020-09-07 16:44:00 [facility] ([facility]) OB Delivery Note REPORT#:[id number] REPORT STATUS: Signed DATE:09/07/20 TIME: 1643 PATIENT: JACKLYN CHOI UNIT #: [id number] ROOM/BED: [address] : 91 AGE: 30 SEX: F ATTEND: Abdelrahman Norman MD ADM AUTHOR: Abdelrahman Norman MD * ALL edits or amendments must be made on the electronic/computer document * OB Delivery Pre-delivery Admission EGA: Weeks: 38 Days: 5 Baby A Information Baby A information Delivery date: 09/07/20 status: live born Wt of baby: not yet available Gender: male 1 minute: 8 5 minutes: 8 Presentation: suzy breech Nuchal cord Baby A Nuchal cord: double Vaginal Delivery Vaginal delivery: Labor: induced Medications/Devices used: oxytocin, cytotec Vaginal delivery: spontaneous Amniotic fluid: clear Anesthesia type: epidural anesthesia Episiotomy: none Episiotomy repair: not applicable Laceration repair: not required Placenta: spontaneous, expressed, intact Post delivery meds used: oxytocin Count: correct Vaginal packing: No Mother's condition: mother stable Infant's condition: infant stable in room Lacerations: Perineal laceration(s): None High vaginal laceration: no Extraction details OVD performed: no Shoulder dystocia present: no Additional comments: by Eddie VILLAFANA and Emerson Blood Loss/Details Blood loss at delivery: no more than expected, 200 ml at 1647 RPT #:[id number] END OF REPORT [facility] 2020-09-07 08:22:00 [facility] ([facility]) OB Admission / H P REPORT#:[id number] REPORT STATUS: Signed DATE:09/07/20 TIME: 821 PATIENT: JACKLYN CHOI UNIT #: [id number] ROOM/BED: [address] : 91 AGE: 30 SEX: F ATTEND: Abdelrahman Norman MD ADM AUTHOR: Abdelrahman Norman MD * ALL edits or amendments must be made on the electronic/computer document * OB History Chief complaint: scheduled induction history: : 5 Term: 2 : 1 Abortus: 1 Living children: 2 Current : Best EDC: 09/16/20 Admission EGA (weeks) 38 Admission EGA (days) 5 Conditions of : diabetes - gestational, prior stillborn Past History Additional Medical History: none Additional Surgical History: none Allergies: Coded Allergies: No Known Allergies (08/25/20) Objective General VS: Last Documented: Result Date Time B/P Mean 91.0 09/07 718 B/P 122/74 09/07 718 Temp 98.0 09/07 718 Pulse 96 09/07 718 Resp 17 09/07 718 Vital Signs Date Temp Pulse Resp B/P B/P Mean Pulse Ox FiO2 09/06-09/07 98.0 86-110 17 116-125/69-80 86.0-98.0 PATIENT WEIGHT: Weight (lb): 189 Weight (oz): Weight (kg): 85.087486 Physical Exam HEENT: normocephalic w/o injury, no apparent hearing diff Cardiac: regular rate and rhythm, no clinically sig murmur, no gallops, no rubs Lungs: clear to auscultation, no rales, no rhonchi, unlabored breathing Breasts: deferred Neuro: Exam: alert, oriented x3, normal speech, normal gait, CNII-XII grossly intact Abdomen: gravid, soft, no abnormal tenderness, no guarding, no rebound tenderness Pelvic exam: Pelvis clinically adequate: yes, inlet appears appropriate, pubic bone config appropr, no midpelvic contraction Vulvar lesions: none, no evidence herpetic les, no evidence of other STD Vagina: normal, non-septated, w/o apparent lesions Uterus size in weeks: 38 Exam: soft, non-tender, approp size for gest age Cervical/ exam: Dilatation (cm): 2 Effacement (%): 60 Suspected macrosomia: No Suspected > 5000 grams: No station: - 2 presentation: cephalic Membranes: Membranes: AROM ROM date: 09/07/20 Amniotic fluid: clear Odor: none Result Findings/Data: Laboratory Tests: 09/06 2149 Chemistry Glucose (65 - 110 mg/dL) 113 H Hematology WBC (6.5 - 12.3 K/mm3) 9.4 RBC (3.51 - 4.69 M/mm3) 4.02 Hgb (10.1 - 13.8 g/dL) 11.0 Hct (32.5 - 41.8 %) 34.7 MCV (84.6 - 96.6 fL) 86.3 MCH (27.3 - 33.9 pg) 27.4 MCHC (32.0 - 34.2 gm/dL) 31.7 L RDW (12.2 - 16.3 %) 13.9 Plt Count (134 - 363 K/mm3) 277 MPV (9.2 - 12.7 fL) 11.5 Neut % (Auto) (57.9 - 77.3 %) 69.4 Lymph % (Auto) (14.5 - 29.7 %) 22.1 [place] % (Auto) (3.6 - 10.2 %) 7.5 Eos % (Auto) (0.0 - 3.0 %) 0.5 Baso % (Auto) (0.1 - 0.9 %) 0.2 Neut # (Auto) (K/mm3) 6.5 Lymph # (Auto) (K/mm3) 2.1 [place] # (Auto) (K/mm3) 0.7 Eos # (Auto) (K/mm3) 0.05 Baso # (Auto) (K/mm3) 0.0 Serology Treponema pallidum Ab (NONREACTIVE) NONREACTIVE Hep Bs Antigen (NONREACTIVE) NONREACTIVE Hepatitis C Antibody (NONREACTIVE) NONREACTIVE Hep C Ab Signal/Cutoff (<0.80) 0.04 HIV 1 2 Antibody (NONREACTIVE) NONREACTIVE Diagnosis, Assessment Plan Diagnosis, Assessment Plan Assessment/Impression: IUP 38 5/7 wk ; gest DM ; prior stillborn Plan: delivery Reason-sched induction: gestational diabetes Plan discussed with: patient, spouse/partner, nurse at 0828 RPT #:[id number] END OF REPORT [facility]"
--- NOTE | 2024-02-24 20:34 | ER ---
Nurse's Notes [facility] Name: Patsy Alcocer Age: 33 yrs Sex: Female : 1990 Arrival Date: 02/24/2024 Time: 20:18 Bed IW1 Private MD: Diagnosis: Periapical abscess without sinus Presentation: 02/23 20:30 Chief complaint: Patient states: I have an abscess on the right side of my mouth. It tm6 started last night. It is hurting. Coronavirus screen: Client denies travel out of the [place] in the last 14 days. Ebola Screen: Patient negative for fever greater than or equal to 101.5 degrees Fahrenheit, and additional compatible Ebola Virus Disease symptoms Patient denies exposure to infectious person. Patient denies travel to an Ebola-affected area in the 21 days before illness onset. No symptoms or risks identified at this time. Risk Assessment: Do you want to hurt yourself or someone else? Patient reports no desire to harm self or others. Onset of symptoms was February 23, 2024. 20:30 Method Of Arrival: Ambulatory tm6 20:32 Initial Sepsis Screen:. tm6 20:32 Acuity: BIN 4 tm6 20:39 Initial Sepsis Screen: Does the patient meet any 2 criteria? HR > 90 bpm. Does the tm6 patient have a suspected source of infection? No. Patient's initial sepsis screen is negative. Triage Assessment: 20:30 General: Appears in no apparent distress. Behavior is calm, cooperative. Pain: tm6 Complains of pain in left jaw. 20:31 EENT: Reports pain in left jaw since yesterday. Neuro: Level of Consciousness is awake, tm6 alert, obeys commands, Oriented to person, place, time, situation. Cardiovascular: Patient's skin is warm and dry. Respiratory: Airway is patent Respiratory effort is even, unlabored, Respiratory pattern is regular, symmetrical. GI: No signs and/or symptoms were reported involving the gastrointestinal system. Abdomen is round non-distended. : No signs and/or symptoms were reported regarding the genitourinary system. Derm: No signs and/or symptoms reported regarding the dermatologic system. Musculoskeletal: No signs and/or symptoms reported regarding the musculoskeletal system. 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 - Infectious Disease History:: Denies. - Social history:: Smoking status: Patient denies any tobacco usage or history of. Screenin:38 [facility] ED Fall Risk Assessment (Adult) History of falling in the last 3 months, tm6 including since admission No falls in past 3 months (0 pts) Confusion or Disorientation No (0 pts) Intoxicated or Sedated No (0 pts) Impaired Gait No (0 pts) Mobility Assist Device Used No (0 pt) Altered Elimination No (0 pt) Score/Fall Risk Level 0 - 2 = Low Risk Oriented to surroundings, Maintained a safe environment, Educated pt \T\ family on fall prevention, incl call for assistance when getting out of bed. Abuse screen: Denies threats or abuse. Denies injuries from another. Nutritional screening: No deficits noted. Tuberculosis screening: No symptoms or risk factors identified. Assessment: 20:38 Reassessment: see triage assessment. tm6 Vital Signs: 20:33 BP 123 / 77; Pulse 105; Resp 19; Temp 98.9(O); Pulse Ox 100% on R/A; MAP 90 mmHg; tm6 Weight 75.75 kg; Height 5 ft. 2 in. ; Pain 8/10; 20:33 Body Mass Index 30.54 (75.75 kg, 157.48 cm) tm6 20:33 Pain Scale: Adult tm6 ED Course: 20:21 Patient arrived in ED. jj6 20:21 Faby Kerr PA-C is PHCP. sb4 20:22 Eddie Rudolph MD is Attending Physician. sb4 20:32 Triage completed. tm6 20:33 Suraj Colon DDS is Referral Physician. sb4 20:33 Arm band placed on right wrist. tm6 20:38 Patient has correct armband on for positive identification. Provided Education on: use tm6 of prescription, follow up with dentist. 20:38 No provider procedures requiring assistance completed. Patient did not have IV access tm6 during this emergency room visit. Administered Medications: No medications were administered Medication: 20:38 VIS not applicable for this client. tm6 Outcome: 20:33 Discharge ordered by . sb4 20:38 Discharged to home ambulatory, tm6 20:38 Condition: stable 20:38 Discharge instructions given to patient, Instructed on discharge instructions, follow up and referral plans. medication usage, Demonstrated understanding of instructions, follow-up care, medications, Prescriptions given X 1, 20:39 Patient left the ED. tm6 Signatures: Jovita Blum jj6 Faby Kerr PA-C PAYvette [id number] Dale Sow RN RN tm6
--- NOTE | 2024-02-24 20:34 | EDPHYS ---
Physician Documentation [facility] Name: Patsy Alcocer Age: 33 yrs Sex: Female : 1990 Arrival Date: 02/24/2024 Time: 20:18 Bed IW1 Private MD: ED Physician Eddie Rudolph HPI: 02/23 20:37 This 33 yrs old Female presents to ER via Ambulatory with complaints of Toothache, EST sb4 12 WKS GESTATION. 20:37 The patient presents with pain, swelling. The problem is located in the lower left sb4 second molar. Onset: The symptoms/episode began/occurred last night. Associated signs and symptoms: Pertinent positives: pain, redness in area, swelling, Pertinent negatives: chills, dysphagia, fever, inability to eat, vomiting. The patient has not experienced similar symptoms in the past. 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 - Infectious Disease History:: Denies. - Social history:: Smoking status: Patient denies any tobacco usage or history of. ROS: 20:37 Constitutional: Negative for fever, chills, and weight loss, sb4 20:37 ENT: Positive for dental pain, 20:37 All other systems are negative, Exam: 20:37 Constitutional: This is a well developed, well nourished patient who is awake, alert, sb4 and in no acute distress. Head/Face: Normocephalic, atraumatic. Eyes: Extra-ocular motions intact. Periorbital areas with no swelling, redness, or edema. Skin: Warm, dry with normal turgor. Normal color with no rashes, no lesions, and no evidence of cellulitis. 20:37 Head/face: Noted is swelling, that is mild, of the left jaw, 20:37 ENT: Dental exam: abscess, that is mild, specifically in the lower left second molar, gum swelling, that is mild, Vital Signs: 20:33 BP 123 / 77; Pulse 105; Resp 19; Temp 98.9(O); Pulse Ox 100% on R/A; MAP 90 mmHg; tm6 Weight 75.75 kg; Height 5 ft. 2 in. ; Pain 8/10; 20:33 Body Mass Index 30.54 (75.75 kg, 157.48 cm) tm6 20:33 Pain Scale: Adult tm6 MDM: 20:33 Medical Screening Exam initiated sb4 20:37 Data reviewed: vital signs, nurses notes, and as a result, I will discharge patient. sb4 Counseling: I had a detailed discussion with the patient and/or guardian regarding the historical points, exam findings, and any diagnostic results supporting the discharge/admit diagnosis, the need for outpatient follow up, a dentist, to return to the emergency department if symptoms worsen or persist or if there are any questions or concerns that arise at home. Administered Medications: No medications were administered Disposition: 21:06 Co-signature as Attending Physician, Eddie Rudolph MD I reviewed the patient's care rt provided by the Advanced Practice Provider and agree with the diagnosis and treatment plan. Disposition Summary: 02/24/24 20:33 Discharge Ordered Notes: Location: Home sb4 Problem: new sb4 Symptoms: have improved sb4 Condition: Stable sb4 Diagnosis - Periapical abscess without sinus sb4 Followup: sb4 - With: Suraj Colon DDS - When: 2 - 3 days - Reason: Recheck today's complaints, Re-evaluation by your physician Discharge Instructions: - Discharge Summary Sheet sb4 - Dental Abscess sb4 Forms: - Antibiotic Education sb4 - Patient Portal Instructions sb4 - Leadership Thank You Letter sb4 Prescriptions: - Amoxicillin 875 mg Oral Tablet - take 1 tablet ORAL route every 12 hours for 10 days; 20 tablet; Refills: 0, sb4 Product Selection Permitted Signatures: Faby Kerr, PARoxyC PARoxyC sb4 Eddie Rudolph MD MD rt Dale Sow RN RN tm6
[2024-02-25 03:00] VITALS: BP 123/77; TEMP 98.9; O2SAT 100
== END 2024-02-24 20:39 | disposition home or self-care (01) ==
LOC: ER 20:18
DX: O26.891 Other specified pregnancy related conditions, first trimester (principal); K04.7 Periapical abscess without sinus
CPT/HCPCS: 99283